=== PATIENT | female | born 1970 | race Caucasian/White ===

== ENCOUNTER 2020-08-14 10:43 | Outpatient (REF) | payer OTHER, SELFPAY ==
[2020-08-14 12:42] LABS: MANUAL DIFF FLAG NO
[2020-08-14 12:46] LABS: Basophils Absolute Auto 0.1 X10*3/uL (0.0-0.2); Basophils Percent Auto 0.6 % (0-2); Eosinophils Absolute Auto 0.4 X10*3/uL (0.0-0.4); Eosinophils Percent Auto 3.3 % (0-4); Hematocrit 37.7 % (37-47); Hemoglobin 12.3 g/dl (12.0-16.0); Imm Gran Abs Auto 0.05 X10*3/uL (0.00-0.03); Imm Gran Pct Auto 0.5 % (0.0-0.4); Lymphocytes Percent Auto 18.1 % (20-40); Mean Corpuscular HGB Conc 32.6 g/dl (31.0-35.0); Mean Corpuscular Hemoglobin 28.5 pg (27.0-33.0); Mean Corpuscular Volume 87.5 fL (80-98); Mean Platelet Volume 9.9 fL (9.4-12.3); Monocytes Absolute Auto 0.6 X10*3/uL (0.1-1.2); Monocytes Percent Auto 5.1 % (2-11); Neutrophils Absolute Auto 7.9 X10*3/uL (2.0-8.3); Neutrophils Percent Auto 72.4 % (45-73); Platelet Count 259 X10*3/uL (160-400); Red Blood Count 4.31 X10*6/uL (4.20-5.50); Red Cell Distribution Width 17.7 % (11.0-16.0); White Blood Count 10.9 X10*3/uL (4.8-10.8)
[2020-08-14 13:14] LABS: Alanine Aminotransferase 31 U/L (0-31); Albumin Level 4.3 g/dL (3.5-5.0); Alkaline Phosphatase 96 U/L (39-117); Anion Gap 13 (12-20); Aspartate Amino Transferase 30 U/L (5-31); Bilirubin Total 0.4 mg/dL (0.0-1.0); Blood Urea Nitrogen 14 mg/dL (9-16); C Reactive Protein 0.08 mg/dL (< or = 0.50); Calcium 9.5 mg/dL (8.4-10.2); Carbon Dioxide 28 mmol/L (22-29); Chloride 102 mmol/L (96-108); Estimated Glomerular Filt Rate > 60; Glucose Random 97 mg/dL (60-115); Iron 31 mcg/dL (30-160); Percent Iron Saturation 7 % (15-50); Potassium 4.3 mmol/L (3.3-5.1); Sodium 139 mmol/L (135-145); Total Iron Binding Capacity 431 mcg/dL (228-428); Unsaturated Iron Binding 400 ug/dL
[2020-08-14 13:18] LABS: Creatinine Urine 240.15 mg/dL; Protein/Creatinine Ratio, Ur 0.07 (<0.2); Total Protein Urine Random 16 mg/dL (<12)
[2020-08-14 13:35] LABS: Ferritin 6 ng/mL (10-250); TSH reflex Free T4 1.51 uIU/mL (0.32-4.0); Vitamin D 25-OH Total 8.2 ng/mL (>30)
[2020-08-14 13:48] LABS: Folate 10.3 ng/mL (> or = 4.0); Vitamin B12 356 pg/mL (200-900)
[2020-08-14 13:57] LABS: Erythrocyte Sedimentation Rate 10 MM/HR (0-20)
[2020-08-15 08:24] LABS: HBS Num1 2.66 mIU/mL (0-7.99); HBc Num1 0.11 S/CO (0.00-0.79); Hepatitis A Antibody IgM 0.19 Index (0-0.79); Hepatitis B Core Antibody Nonreactive (Nonreactive); Hepatitis B Surface Antigen Negative (Negative); ~Hepatitis A Antibody IgM Nonreactive (Nonreactive); ~Hepatitis B Surface Antibody NONREACTIVE (Nonreactive)
[2020-08-15 08:43] LABS: ~HepC Num1 0.05 S/CO (0.00-0.79); ~Hepatitis C Antibody Nonreactive (Nonreactive)
[2020-08-15 12:02] LABS: Myeloperoxidase Antibody <1.0 AI; Proteinase 3 PR3 Antibodies <1.0 AI
[2020-08-15 15:17] LABS: IgA 162 mg/dL (47-310); IgG 809 mg/dL (600-1640); IgM 124 mg/dL (50-300)
[2020-08-15 20:12] LABS: Immunoglobulin G Subclass 1 447 mg/dL (382-929); Immunoglobulin G Subclass 2 190 mg/dL (241-700); Immunoglobulin G Subclass 3 18 mg/dL (22-178); Immunoglobulin G Subclass 4 6.3 mg/dL (4-86); Immunoglobulin G Total 768 mg/dL (600-1640)
[2020-08-17 05:01] LABS: Gastrin 26 pg/mL (<=100)
[2020-08-17 07:26] LABS: C1 Esterase Inhibitor 96 % (>=68)
[2020-08-17 13:12] LABS: Anti Nuclear Antibody Screen NEGATIVE (NEGATIVE)
[2020-08-17 16:51] LABS: Zinc 62 mcg/dL (60-130)
[2020-08-17 20:06] LABS: Vitamin C 0.1 mg/dL (0.3-2.7)
[2020-08-17 21:22] LABS: Transglutaminase Ab IgG 1 U/mL; Transglutaminase IgA 1 U/mL
[2020-08-18 13:11] LABS: Metanephrine, Free 42 pg/mL (<=57); Normetanephrines, Free 97 pg/mL (<=148); Total Metanephrine, Free 139 pg/mL (<=205)
[2020-08-18 17:12] LABS: C1Q Complement Component 7.2 mg/dL (5.0-8.6)
[2020-08-18 18:46] LABS: Nicotinamide <20 ng/mL; Vit B3 - Nicotinic Acid <20 ng/mL; Vitamin A 54 mcg/dL (38-98)
[2020-08-19 15:36] LABS: Vitamin B6 8.3 ng/mL (2.1-21.7)
[2020-08-20 14:02] LABS: Vitamin B5 (Pantothenic Acid) <40 ng/mL (<275)
[2020-08-21 23:22] LABS: Histamine Plasma <1.5 ng/mL (< OR = 1.8)
[2020-08-23 00:22] LABS: Vitamin K1 4777 pg/mL (130-1500)
[2020-08-23 18:37] LABS: Alpha-Tocopherol 19.7 mg/L (5.7-19.9); Beta-Gamma Tocopherol 6.5 mg/L (<=4.3)
[2020-08-27 20:07] LABS: Porphyrins, Total Plasma 2.4 mcg/L (1.0-5.6)
== END 2020-08-14 10:44 | disposition home or self-care (01) ==
LOC: HO.LAB 10:43
PROVIDERS: PCP Internal Medicine; Visit Provider Internal Medicine Gastroenterology
DX: R10.33 Periumbilical pain (principal); I73.00 Raynaud's syndrome without gangrene; K75.81 Nonalcoholic steatohepatitis (NASH); G89.29 Other chronic pain; R79.82 Elevated C-reactive protein (CRP)
CPT/HCPCS: 36415; 80053; 82085; 82175; 82180; 82300; 82306; 82542; 82570; 82607; 82728; 82746; 82784; 82941; 82943; 83018; 83088; 83516; 83520; 83540; 83655; 83825; 83835; 84150; 84156; 84207; 84443; 84446; 84590; 84591; 84597; 84630; 85025; 85652; 86003; 86021; 86038; 86039; 86140; 86160; 86161; 86704; 86706; 86709; 86803; 87340

== ENCOUNTER 2020-09-26 13:52 | Outpatient (REF) | payer OTHER, SELFPAY | END 2020-09-26 13:53 | disposition home or self-care (01) | LOC: HO.MDS 13:52 | PROVIDERS: PCP Internal Medicine; Visit Provider Internal Medicine Gastroenterology | DX: D50.9 Iron deficiency anemia, unspecified (principal) | CPT/HCPCS: 96365; J2916 ==

== ENCOUNTER 2020-10-03 13:53 | Outpatient (REF) | payer OTHER, SELFPAY | END 2020-10-03 13:54 | disposition home or self-care (01) | LOC: HO.MDS 13:53 | PROVIDERS: PCP Internal Medicine; Visit Provider Internal Medicine Gastroenterology | DX: D50.9 Iron deficiency anemia, unspecified (principal) | CPT/HCPCS: 96365; J2916 ==

== ENCOUNTER 2020-10-24 12:27 | Day surgery (SDC) | payer OTHER, SELFPAY ==
[2020-10-17 12:29] VITALS: BMI 33.3
--- NOTE | 2020-10-23 10:08 | P.CONAN_ITS ---
Documented by User: Veronica Escobar NP 10/23/20 10:09 HPI - Anesthesia Eval Consult details Narrative: 49yo F For Upper Endoscopy and Colonoscopy PMFSH Active Problems Active Problems: All Active Problems (Updated 10/17/20 @ 12:24 by Lanette Coleman, RN) Raynauds disease (Acute) Abdominal pain (Acute) Past Medical History Medical History (Updated 10/17/20 @ 12:24 by Lanette Cloeman, RN) Asthma Dental crowns present Hypothyroid Maternal anesthesia complication Peripheral edema Raynaud disease Seasonal allergies Family History Family History (Updated 08/14/20 @ 11:01 by NATALIA Kemp) Mother Cancer Surgical History Surgical History (Updated 10/17/20 @ 12:24 by Lanette Coleman RN) H/O colonoscopy H/O esophagogastroduodenoscopy History of breast augmentation Hx of foot surgery Social History Social History Are you a primary childcare center administrator to a significant other at home: No Do you presently have visiting nurse or other home services: No Patient Tobacco Use Status: Never used Tobacco Use of substances other than those prescribed or required for medical reasons: No Have you been hit, kicked, punched, or otherwise hurt by someone within the past year? If so, by whom?: No Are you DNR?: No Advance Directives: No Advance Directives Information Provided: No Advance Directives on File: No Recently lost weight without trying: No Eating poorly because of decreased appetite: No Nutrition Risks: No Nutritional Risk : No Poor oral hygiene: No (Multiple Crowns) Meds Allergies Allergy/AdvReac Type Severity Reaction Status Date / Time Seasonal Allergies Allergy Mild unknown Verified 10/24/20 12:44 sulfate ion Allergy Mild Hallucinati Verified 10/24/20 12:44 ons Home Medications Medication Instructions Recorded Confirmed Last Taken Type albuterol sulfate 90 mcg/actuation 2 puff INHALATION Q4-6H PRN 08/14/20 10/17/20 Unknown History aerosol inhaler citalopram 20 mg tablet 20 mg PO DAILY 08/14/20 10/17/20 Unknown History furosemide 20 mg tablet 20 mg PO DAILY 08/14/20 10/17/20 Unknown History furosemide 40 mg tablet 40 mg PO DAILY 08/14/20 10/17/20 Unknown History ibuprofen 800 mg tablet 800 mg PO Q8H PRN 08/14/20 10/17/20 Unknown History levothyroxine 100 mcg tablet 100 mcg PO DAILY 08/14/20 10/17/20 Unknown History meloxicam 15 mg tablet 15 mg PO QPM 08/14/20 10/17/20 Unknown History sodium,potassium,mag sulfates 17.5 354 ml PO DIRECTED 08/14/20 Unknown History gram-3.13 gram-1.6 gram oral soln spironolactone 25 mg tablet 25 mg PO DAILY 08/14/20 10/17/20 Unknown History Exam Exam Date and Time: October 23, 2020 1008 Height,Weight and Vital Signs: Height 5 ft 2 in Weight 82.554 kg Pertinent Lab Results Pertinent Lab Results: Laboratory Tests 08/14/20 08/14/20 12:35 12:35 WBC 10.9 H Hgb 12.3 Hct 37.7 Plt Count 259 Sodium 139 Potassium 4.3 Chloride 102 Carbon Dioxide 28 BUN 14 Creatinine 0.83 Assessment and Plan Assessment Anesthesia Assessment: Chart Reviewed Documented by User: Jon David MD 10/24/20 12:44 [facility] Past Medical History Medical History (Updated 10/17/20 @ 12:24 by Lanette Coleman, RN) Asthma Dental crowns present Hypothyroid Maternal anesthesia complication Peripheral edema Raynaud disease Seasonal allergies Family History Family History (Updated 08/14/20 @ 11:01 by NATALIA Kemp) Mother Cancer Surgical History Surgical History (Updated 10/17/20 @ 12:24 by Lanette Coleman RN) H/O colonoscopy H/O esophagogastroduodenoscopy History of breast augmentation Hx of foot surgery Social History Social History Are you a primary childcare center administrator to a significant other at home: No Do you presently have visiting nurse or other home services: No Patient Tobacco Use Status: Never used Tobacco Use of substances other than those prescribed or required for medical reasons: No Have you been hit, kicked, punched, or otherwise hurt by someone within the past year? If so, by whom?: No Are you DNR?: No Advance Directives: No Advance Directives Information Provided: No Advance Directives on File: No Recently lost weight without trying: No Eating poorly because of decreased appetite: No Nutrition Risks: No Nutritional Risk : No Poor oral hygiene: No (Multiple Crowns) Meds Allergies Allergy/AdvReac Type Severity Reaction Status Date / Time Seasonal Allergies Allergy Mild unknown Verified 10/24/20 12:44 sulfate ion Allergy Mild Hallucinati Verified 10/24/20 12:44 ons Home Medications Medication Instructions Recorded Confirmed Last Taken Type albuterol sulfate 90 mcg/actuation 2 puff INHALATION Q4-6H PRN 08/14/20 10/17/20 Unknown History aerosol inhaler citalopram 20 mg tablet 20 mg PO DAILY 08/14/20 10/17/20 Unknown History furosemide 20 mg tablet 20 mg PO DAILY 08/14/20 10/17/20 Unknown History furosemide 40 mg tablet 40 mg PO DAILY 08/14/20 10/17/20 Unknown History ibuprofen 800 mg tablet 800 mg PO Q8H PRN 08/14/20 10/17/20 Unknown History levothyroxine 100 mcg tablet 100 mcg PO DAILY 08/14/20 10/17/20 Unknown History meloxicam 15 mg tablet 15 mg PO QPM 08/14/20 10/17/20 Unknown History sodium,potassium,mag sulfates 17.5 354 ml PO DIRECTED 08/14/20 Unknown History gram-3.13 gram-1.6 gram oral soln spironolactone 25 mg tablet 25 mg PO DAILY 08/14/20 10/17/20 Unknown History Exam Airway Mallampati Class: II TM Dist: >3cm Neck ROM: Full
[2020-10-24 12:50] VITALS: BP 126/63; PULSE 72; RESP 16; TEMP 36.6; O2SAT 95
[2020-10-24 12:57] LABS: UPreg QC Valid YES; Urine Pregnancy NEGATIVE (NEGATIVE)
[2020-10-24] MEDS: Lactated Ringers 1,000 ML 100 ML IVCONT (13:04)
--- NOTE | 2020-10-24 13:24 | MHC.SHP ---
Pre-Procedural Eval Section A Date of Service: 10/24/20 Section B Chief Complaint: abdominal pain Relevant Family History (Specify if Yes): No Relevant Social History: None Present Medications: see Short Stay Collaborative assessment Medical History: Significant History (Asthma Dental crowns present Hypothyroid Maternal anesthesia complication Peripheral edema Raynaud disease Seasonal allergies) History of Previous Operations: Relevant previous surgery/procedure and date(s) (H/O colonoscopy H/O esophagogastroduodenoscopy History of breast augmentation Hx of foot surgery) Allergies: Allergies Allergy/AdvReac Type Severity Reaction Status Date / Time Seasonal Allergies Allergy Mild unknown Verified 10/24/20 12:56 sulfate ion Allergy Mild Hallucinati Verified 10/24/20 12:56 ons Review of Systems Sugical H&P ROS: Negative: Constitution, Cardiovascular, Respiratory, Neurological, Psychiatric, Hem-Onc, Allergic/Immunologic, Gastrointestinal, Genitourinary, Musculoskeletal, Integumentary, Endocrine and Eyes/Ears/Nose/Throat Exam Surgical H&P Exam: Normal: HEENT, Normal: Heart, Normal: Lungs, Normal: Extremities, Normal: Abdomen, Normal: Skin and Normal: Neurological Plan Diagnosis/Plan: Unchanged I have reviewed the history and physical and performed a pertinent physical examination on my patient. No changes have occurred unless specified.
--- NOTE | 2020-10-24 13:46 | P.BOP_ITS ---
Brief Operative Note Date of Service: 10/24/20 Pre-op diagnosis: abdominal pain, bloating Post-op diagnosis: same Procedure: see op note Surgeon: Jerry Bar MD Anesthesia: MAC Was an It Senior Software Engineer Java used for this Procedure?: No Estimated blood loss (mL): 0 Condition: stable Disposition: PACU
--- NOTE | 2020-10-24 13:46 | W.PM.OPN ---
Operative Note Operative Note Date of Service: 10/24/20 Narrative: Operative Information Procedure Description: EGD, Colonoscopy FLEXIBLE TRANSORAL UPPER GASTROINTESTINAL ENDOSCOPY AND COLONOSCOPY PROCEDURE NOTE UPPER ENDOSCOPY Consent: Indications for the procedure and potential complications of bleeding, perforation, reaction to medications and missed diagnosis were discussed with the patient and informed consent was obtained. Instrument: Olympus GIF H 190 J mid size upper endoscope Monitoring: Vital signs and clinical assessment, continuous EKG monitoring, Pulse oximetry, Carbon Dioxide monitoring and blood pressure monitoring were done throughout the procedure. Procedure: The patient was placed in the left lateral decubitis position and pre-procedure medications were administered and a bite block was placed. The endoscope was inserted into the mouth and advanced under direct vision to the third part of duodenum. A careful inspection was made as the upper endoscope was withdrawn including a retroflexed examination of the proximal stomach; Findings and interventions are described below. Findings: Larynx:normal Esophagus: GE junction at 42 cm, diaphragm hiatus at 42 cm, LA grade B erosive esophagitis noted with islands of salmon pink tissue suspicious for barretts esophagus, bx taken from GEJ and random esophagus Stomach: Patchy erythema with scarring. Biopsies were obtained. Grade 2 flap valve on retroflexed examination of the cardia. Duodenum: Bulbar duodenitis, bx taken Intervention: Biopsies as noted above COLONOSCOPY Instrument: Olympus variable stiffness pediatric scope 190L Colonoscopy Monitoring: Vital signs and clinical assessment, continuous EKG monitoring, Pulse oximetry, Carbon Dioxide monitoring and blood pressure monitoring were done throughout the procedure. Colon withdrawal time was 50 minutes. Procedure: The patient was placed in the left lateral decubitis position and pre-procedure medications were administered. After a digital rectal examination of the ano-rectum, the video colonoscope was inserted into the rectum and advanced through the colon to the cecum/TI. The colonoscope was slowly withdrawn in a retrograde panoramic fashion and the colon mucosa was carefully examined including a retroflexed view of the rectum. Findings and interventions are described below. Procedure Difficulty: easy Findings: Terminal Ileum-normal, bx taken random bx taken from right colon, left and rectum in separate jars. Cecum: 12-15 mm lateral spreading granular polyp lesion injected with ORISE and then removed piece meal using cold snare, edges removed with forceps Ascending Colon: x 2 laterally spreading granular polpy lesions 14-15 mm in length injected with ORISe and removed with cold snare. One of these lesions was only visible on right sided retroflexion and was removed as such with straight fire APC used to treat any residual tissue. Further x 2 sessile polyps 8-10 mm removed with cold snare. Due to oozing from lesions hemospray was applied. Transverse Colon -normal Descending Colon:normal Sigmoid Colon: normal Rectum: Retroflexion with moderate enlarged internal hemorrhoids, grade I with surrounding inflammation Anorectum - normal Colon preparation: [place] Bowel Preparation Scale Right colon; 3 Transverse colon: 3 Left colon; 3 (0 = Unprepared colon segment with mucosa not seen due to solid stool that cannot be cleared. 1 = Portion of mucosa of the colon segment seen, but other areas of the colon segment not well seen due to staining, residual stool and/or opaque liquid. 2 = Minor amount of residual staining, small fragments of stool and/or opaque liquid, but mucosa of colon segment seen well. 3 = Entire mucosa of colon segment seen well with no residual staining, small fragments of stool or opaque liquid) Impression and Post Procedure Diagnosis: Endoscopy Findings: gastritis duodenitis erosive esophagitis suspected barretts esophagus Colonoscopy Findings: polyps internal hemorrhoids Plan: Await Pathology results Repeat Colonoscopy in 6-12 months or earlier if clinically indicated High fiber diet leaflet avoid straining at stool, epsom salts and sitz bath, anusol supps or cream confirm nsaid history, upper GI injury may be from nsaid usage, if h pylori pos then treat, can treat with high dose PPI if not taking. Above findings were reviewed with the patient and relevant handouts were provided if indicated.
[2020-10-24 14:56] VITALS: BP 102/61; PULSE 75; RESP 16; TEMP 36.5; O2SAT 96
[2020-10-24] MEDS: Acetaminophen 325 MG TABLET 650 MG PO (15:10)
[2020-10-24 15:11] VITALS: BP 111/55; PULSE 70; RESP 16; O2SAT 97
== END 2020-10-24 16:02 | disposition home or self-care (01) ==
PROVIDERS: Nurse Practitioner; PCP Internal Medicine; Visit Provider Internal Medicine Gastroenterology
PROC: (CPT 43239; principal; 2020-10-24 13:40)
DX: R10.9 Unspecified abdominal pain (principal); K62.5 Hemorrhage of anus and rectum; K63.5 Polyp of colon; K64.0 First degree hemorrhoids; K20.80 Other esophagitis without bleeding; K29.70 Gastritis, unspecified, without bleeding; K29.80 Duodenitis without bleeding
CPT/HCPCS: 43239; 45385; 45381; 81025; 88305; 88313; 88341; 88342; J3010

== ENCOUNTER 2020-12-04 14:46 | Outpatient (REF) | payer OTHER, SELFPAY ==
--- NOTE | ~2020-12-04 | CT_ITS ---
EXAMINATION: CT ABDOMEN AND PELVIS WITH CONTRAST CLINICAL INFORMATION: Edema. COMPARISON: None. TECHNIQUE: Multidetector volumetric images were obtained from the superior aspect of the liver through the pubic symphysis following administration 85 mL of Omnipaque 350 intravenous and oral contrast. Sagittal and coronal reformatted images were obtained on the technologist's workstation. Oral contrast: No This CT examination was performed using dose optimization techniques as appropriate, variously including the following: *Automated exposure control *Adjustment of mA and/or kV according to patient size (this includes techniques or standardized protocols for targeted exams where dose is matched to indication/reason for exam; i.e. extremities or head) *Use of iterative reconstruction technique DLP: 608 mGy-cm. FINDINGS: LUNG BASES: The visualized lung bases are unremarkable. LIVER, GALLBLADDER, AND BILIARY TREE: The liver is normal in size, shape, and attenuation. There is a punctate hypodensity in the right hepatic lobe segment 8, probable cyst. The gallbladder is unremarkable with no evidence of radiopaque gallstones, gallbladder wall thickening, or obvious pericholecystic inflammatory changes. PANCREAS: Unremarkable. SPLEEN: Unremarkable. ADRENAL GLANDS: Unremarkable. KIDNEYS AND URETERS: The kidneys are normal in size, shape, and attenuation. No hydronephrosis, hydroureter, or calculi seen. No perinephric stranding. BLADDER: Unremarkable. GASTROINTESTINAL TRACT: There is oral contrast opacifying the entire colon without obstruction or intraluminal filling defect. There is mild narrowing in the sigmoid colon on axial image 62/3, likely peristalsis or spasm. The small bowel loops are unremarkable. The stomach is nondistended. Appendix is normal. ABDOMINAL WALL: Small umbilical hernia containing fat. LYMPH NODES: Normal. VASCULAR: Unremarkable. PELVIC VISCERA: There is a right ovarian cyst measuring 3.2 x 2.8 cm. There is no free fluid. The uterus is anteverted and appears unremarkable. OSSEOUS STRUCTURES: No osseous abnormality seen. CT/CT abdomen pelvis w con IMPRESSION: No acute intra-abdominal process seen. There is a right ovarian cyst and probable small right hepatic cyst. Small umbilical hernia containing fat.
--- NOTE | ~2020-12-04 | XR_ITS ---
EXAMINATION: XR CHEST CLINICAL INFORMATION: Nicotine dependence. COMPARISON: None TECHNIQUE: 2 views of the chest were obtained. FINDINGS: No significant abnormality is noted involving the heart, lungs, mediastinum, bony thorax or soft tissues. XR/XR chest 2V IMPRESSION: Unremarkable chest examination.
[2020-12-04] MEDS: Barium Sulfate Oral (Berry) 450 ML ORAL.SUSP 900 ML PO (17:05)
[2020-12-04] MEDS: iohexoL 350 MG/ML 100 ML INFUS..BTL IV (17:05)
== END 2020-12-04 14:47 | disposition home or self-care (01) ==
LOC: HO.CT 14:46
PROVIDERS: Visit Provider Internal Medicine Gastroenterology
DX: R60.9 Edema, unspecified (principal); R06.02 Shortness of breath; R63.5 Abnormal weight gain; F17.200 Nicotine dependence, unspecified, uncomplicated
CPT/HCPCS: 71046; 74177; Q9967

== ENCOUNTER 2020-12-14 15:44 | Outpatient (REF) | payer OTHER, SELFPAY ==
[2020-12-19 09:56] LABS: Creatinine 24Hr Urine 1084 mg/24 h (603 - 1783); N-Methylhistamine, 24Hr Urine 158 mcg/g Cr (30-200); Total Volume 2125 mL
[2020-12-20 02:32] LABS: Metanephrine, Free 24U 100 mcg/24 h (58-203); Normetanephrine, Free 24U 326 mcg/24 h (88-649); Total Metanephrine, Free 24U 426 mcg/24 h (182-739); Total Volume 24U 2125 mL
[2020-12-22 11:37] LABS: Coproporphyrin I, 24Hr 12.3 mcg/24 h (7.1-48.7); Coproporphyrin III, 24Hr 9.8 mcg/24 h (11.0-148.5); Heptacarboxylporphyrin, 24U 1.2 mcg/24 h (< OR = 3.3); Hexacarboxylporphryin, 24U 2.3 mcg/24 h (< OR = 10); Porphyrins, Total 24 Hr 43.8 mcg/24 h (35.0-210.7); Total Volume, Porphyrins 24Hr 2125 mL; Uroporphyrin III, 24Hr 3.2 mcg/24 h (0.7-7.4)
== END 2020-12-14 15:45 | disposition home or self-care (01) ==
LOC: HO.LNP 15:44
PROVIDERS: Visit Provider Internal Medicine Gastroenterology
DX: R10.9 Unspecified abdominal pain (principal); I73.00 Raynaud's syndrome without gangrene
CPT/HCPCS: 81050; 82542; 83835; 84120

== ENCOUNTER 2021-01-29 15:15 | Outpatient (REF) | payer OTHER, SELFPAY ==
[2021-01-29 16:10] LABS: MANUAL DIFF FLAG NO
[2021-01-29 16:48] LABS: Basophils Absolute Auto 0.1 X10*3/uL (0.0-0.2); Basophils Percent Auto 0.6 % (0-2); Eosinophils Absolute Auto 0.4 X10*3/uL (0.0-0.4); Eosinophils Percent Auto 3.3 % (0-4); Hematocrit 40.6 % (37.0-47.0); Hemoglobin 13.7 g/dl (12.0-16.0); Imm Gran Abs Auto 0.07 X10*3/uL (0.00-0.03); Imm Gran Pct Auto 0.6 % (0.0-0.4); Lymphocytes Absolute Auto 2.7 X10*3/uL (1.2-4.9); Lymphocytes Percent Auto 22.6 % (20-40); Mean Corpuscular HGB Conc 33.7 g/dl (31.0-35.0); Mean Corpuscular Hemoglobin 31.4 pg (27.0-33.0); Mean Corpuscular Volume 93.1 fL (80.0-98.0); Mean Platelet Volume 10.2 fL (9.4-12.3); Monocytes Absolute Auto 0.7 X10*3/uL (0.1-1.2); Monocytes Percent Auto 5.9 % (2-11); Platelet Count 303 X10*3/uL (160-400); Red Blood Count 4.36 X10*6/uL (4.20-5.50); Red Cell Distribution Width 14.3 % (11.0-16.0); White Blood Count 11.9 X10*3/uL (4.8-10.8)
== END 2021-01-29 15:16 | disposition home or self-care (01) ==
LOC: HO.LAB 15:15
PROVIDERS: PCP Internal Medicine; Visit Provider Internal Medicine Pulmonary Disease
DX: J45.909 Unspecified asthma, uncomplicated (principal); I73.00 Raynaud's syndrome without gangrene; F17.210 Nicotine dependence, cigarettes, uncomplicated; Z01.82 Encounter for allergy testing
CPT/HCPCS: 36415; 82785; 85025; 86003

== ENCOUNTER → 2021-02-13 07:45 | Outpatient (REF) | payer OTHER, SELFPAY ==
--- NOTE | ~2021-02-13 | NM_ITS ---
EXAMINATION: RADIONUCLIDE SOLID FOOD GASTRIC EMPTYING 4-HOUR STUDY CLINICAL INFORMATION: Early satiety. COMPARISON: No previous gastric emptying study is available for comparison. TECHNIQUE: A standard meal consisting of 4 oz of Egg Beaters brand tagged with 930 microcuries Tc-99m Sulfur Colloid, 8 oz water and 2 slices of toast with jelly was administered orally to the patient. Images were obtained using a dual head gamma camera in the anterior and posterior projections over of the stomach immediately post ingestion and at hourly intervals up to 3 hours post ingestion. Images were not obtained at 4 hours due to the minimal retention at 3 hours. The anterior and posterior counts at each time interval were averaged using the geometric mean and expressed as percentage of the immediate post ingestion counts. FINDINGS: There is good visualization of activity in the stomach immediately post ingestion. As the study progresses, there is good clearance of activity from the stomach and visualization of progressively increasing small bowel activity. By the end of the study, there is almost no retention noted in the stomach. Retention in the stomach at each time interval was: 1 hour 76% (normal 37%-90%) 2 hours 4% (normal 30%-60%) 3 hours 2% 4 hours (Not Obtained) (normal 0%-10%) NM/NM gastric emptying study IMPRESSION: Normal solid food gastric emptying study.
== END ==
LOC: HO.NUCMED 07:45
PROVIDERS: Visit Provider Internal Medicine Gastroenterology
DX: R68.81 Early satiety (principal); I73.00 Raynaud's syndrome without gangrene; R10.9 Unspecified abdominal pain
CPT/HCPCS: 78264; A9541

== ENCOUNTER 2021-02-13 08:38 | Outpatient (REF) | payer OTHER, SELFPAY ==
[2021-02-17 15:57] LABS: Fecal Fat Qualitative Normal (Normal)
[2021-02-19 02:06] LABS: Calprotectin, Fecal 23 mcg/g
[2021-02-19 19:11] LABS: Pancreatic Elastase-1 >500 mcg/g
== END 2021-02-13 08:39 | disposition home or self-care (01) ==
LOC: HO.LNP 08:38
PROVIDERS: Visit Provider Internal Medicine Gastroenterology
DX: I73.00 Raynaud's syndrome without gangrene (principal); R10.9 Unspecified abdominal pain; R68.81 Early satiety
CPT/HCPCS: 82656; 82705; 83993

== ENCOUNTER 2021-02-14 14:38 | Outpatient (REF) | payer OTHER, SELFPAY ==
--- NOTE | ~2021-02-14 | MR_ITS ---
EXAMINATION: MR BRAIN WITHOUT AND WITH CONTRAST CLINICAL INFORMATION: Diplopia. COMPARISON: None available. TECHNIQUE: Multiplanar, multisequence imaging of the brain was performed before and after the intravenous administration of 8.5 mL of Gadavist. FINDINGS: There is no acute infarction, mass, hemorrhage, or extra-axial collection. No abnormal or unexpected intracranial enhancement is seen. The ventricles, sulci, and basilar cisterns are normal in size and configuration. There is no compression of the optic chiasm. No orbital abnormalities seen. No optic nerve compression is seen. The flow voids of the major intracranial arteries appear intact. The bones and extracranial soft tissues are within normal limits. Small amount of fluid is present in the right inferior mastoid. MR/MR head/brain wo/w con IMPRESSION: No mass lesion, acute infarction, or abnormal intracranial enhancement. No orbital abnormality identified.
== END 2021-02-14 14:39 | disposition home or self-care (01) ==
LOC: HO.MRI 14:38
PROVIDERS: PCP Internal Medicine; Visit Provider Internal Medicine Gastroenterology
DX: H53.2 Diplopia (principal); R51.9 Headache, unspecified; R26.89 Other abnormalities of gait and mobility
CPT/HCPCS: 70553; A9585

== ENCOUNTER 2021-03-19 15:40 | Outpatient (REF) | payer OTHER, SELFPAY ==
--- NOTE | ~2021-03-19 | US_ITS ---
EXAMINATION: US PELVIS CLINICAL INFORMATION: Abdominal and pelvic pain, leg swelling. Rule out pelvic lesion or mass. COMPARISON: CT chest 12/04/2020. TECHNIQUE: Ultrasound of the pelvis is performed using both transabdominal and transvaginal transducers along with Doppler. Transvaginal imaging is performed due to inadequate visualization transabdominally. FINDINGS: UTERUS: The uterus is anteverted and measures 6.4 cm in length, 3.2 cm in AP and 3.5 cm in transverse dimension. The double wall endometrial thickness is 0.6 cm. The uterus is smooth in contour and has normal myometrial echogenicity. No visible fibroid. ADNEXA: Both ovaries are visualized. There is normal color flow to the adnexa. There is no ovarian torsion. There is no pelvic ascites or fluid collection. Right ovary measures 5.1 x 3.5 x 3.0 cm and volume 24.0 mL. There are several anechoic cysts. The largest cyst measures 3.1 x 3.5 x 2.4 cm. A cyst with septation and calcification measures 2.4 x 1.9 x 1.6 cm. Left ovary measures 2.3 x 1.4 x 1.9 cm and volume 3.2 mL. There is no free fluid in the cul-de-sac. US/US pelvic and transvaginal IMPRESSION: Several simple cysts and a complex cyst right ovary. The largest simple cyst measures 3.5 cm. Complex cyst measures 2.4 cm.
== END 2021-03-19 15:41 | disposition home or self-care (01) ==
LOC: HO.US 15:40
PROVIDERS: PCP Internal Medicine; Visit Provider Internal Medicine Gastroenterology
DX: R10.9 Unspecified abdominal pain (principal)
CPT/HCPCS: 76830; 76856